=== PATIENT | female | born 1930 | race Caucasian/White ===

== ENCOUNTER 2016-07-08 19:32 | Emergency (ER) | payer MEDICARE, OTHER ==
--- NOTE | ~2016-07-08 | CT4 ---
[facility] A Service of [facility] & [facility] RADIOLOGY TEXT RESULTS PATIENT: JOSE ALVAREZ LOCATION: [facility] : 30 UNIT #: [id number] AGE: [address]: Ronnell Rubio MD SEX: F ORDER DR: [id number] [facility] [address] [place], [place] [address] [id number] E MR#: [id number] Acc #: [id number] NAME: JOSE ALVAREZ : 1930 SEX: F STUDY DATE/TIME: 07/08/2016 21:09 UNIT: [facility] ROOM: STUDY DESCRIPTION: CT Abd and Pelv Wo Cont Attending Physician: Ronnell Rubio M.D. Ordering Physician: Ronnell Rubio M.D. Primary Care Physician: Sixto Kwong M.D. MEDICAL IMAGING REPORT This report is preliminary unless electronic signature is present EXAM CT of the abdomen and pelvis, 07/08 HISTORY Abdominal pain with cramping and nausea since 10 a.m. this morning. History of CLL. TECHNIQUE Axial noncontrast images were obtained through the abdomen and pelvis. Multiplanar reformats were obtained. This CT exam was performed with one or more of the following radiation dose reduction techniques: automatic exposure control, adjustment of mA and/or kV according to patient size, and iterative reconstruction. COMPARISON 08/25/2013 FINDINGS ABDOMEN: There is a large hiatal hernia containing the gastric fundus. It is distended with food debris. The lung bases are clear. Gallbladder is relatively contracted. No renal or ureteral stones are seen. No hydronephrosis. There is a right renal cyst. Unenhanced solid organs are otherwise normal. There is atherosclerotic disease. The patient is status post partial colectomy. There is an ileocolic anastomosis in the left lower quadrant. Small bowel is mildly distended and free fluid throughout. No clear obstructing lesion is seen and there could be some component of obstruction at the ileocolic anastomosis. PELVIS: The bladder is normal. There are no lower ureteral stones. Uterus is surgically absent. There is atherosclerotic disease. 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 There are STS. 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 IMPRESSION 1. The patient is status post partial colectomy with a left lower quadrant ileocolic anastomosis. There are multiple free fluid distended small bowel loops throughout the abdomen and pelvis. While the exact point of obstruction is not clear, it may be at the level of the ileocolic anastomosis. 2. Large hiatal hernia containing the fundus of the stomach which is currently distended with food debris. 3. No renal or ureteral stones and no hydronephrosis. 4. Hysterectomy. Dictated by... Ronnell Ford Jr., M.D. THIS IS AN ELECTRONICALLY VERIFIED REPORT Ronnell Ford Jr., M.D. at 07/10/2016 7:36 AM BENNETT/taniya TD: 07/09/2016 07:56 JOB #: [id number] MEDICAL IMAGING REPORT Page 1 of 1 COPY
[~2016-07-08 19:32] MED LIST: ACETAMINOPHEN PR; ACETAMINOPHEN325 MG PO; AMAZING BUTT CREAM TOP; ANACIN; ANUSOL-HC SUPP25 M1 PR; ASPIRIN PO; ASPIRIN81 M1 PO; ASPIRIN81 M2 PO; ASPIRIN81 MG PO; BACTROBAN22 GM TP; BIOTIN; CARVEDILOL12.5 MG PO; CARVEDILOL3.125 MG PO; CORDARONE200 M1 PO; DIFLUCAN PO; DOCU SOFT100 M1 PO; HYDROCHLOROTH12.5 MG PO; KLOR-CON PO; LASIX20 MG PO; LEVAQUIN PO; LEVOTHROID88 MCG PO; LEVOTHYROXINE75 MCG PO; LEVOXYL88 MC1 PO; LISINOPRIL10 MG PO; LISINOPRIL5 MG PO; MIRALAX119 GM PO; MORGIDOX100 MG PO; NITROGLYCERIN0.4 MG SL; NITROGLYGERIN0.4 MG SL; NITROSTAT0.4 MG SL; OMEPRAZOLE20 M1 PO; OMEPRAZOLE20 M2 PO; PACERONE PO; PHENERGAN PR; PRILOSEC PO; PRILOSEC20 M1 PO; PRILOSEC20 MG PO; SIMVASTATIN40 MG PO; STOOL SOFTNER PO; SYNTHROID0.05 MG PO; SYNTHROID75 MCG PO; TOPROL XL 50 MG50 M1 PO; TOPROL XL 50 MG50 MG PO; TOPROL XL PO; TYLENOL PM EX-1 EAC2 PO; TYLENOL PM EX-S1 TA4 PO; XARELTO20 MG PO; ZEGERID40 MG/PKT PO; ZOFRAN ODT4 MG PO; [UNRECOGNIZED DRUG - OTHER]; [UNRECOGNIZED DRUG - OTHER] PO
[2016-07-08 20:14] LABS: URINE SOURCE CLEAN CATCH
[2016-07-08 20:19] LABS: BASOPHIL% 0.4 % (0-2.5); DIFF IND NO; EOSINOPHIL# 0.2 X10e3 (0-0.7); EOSINOPHIL% 1.5 % (0.0-7.0); HEMATOCRIT 40.3 % (35.0-45.0); LYMPHOCYTE# 1.9 X10e3 (1.0-3.5); LYMPHOCYTE% 18.3 % (17.0-45.0); MEAN CORPUSCULAR HEMOGLOBIN 30.4 PG (28-34); MEAN CORPUSCULAR HGB CONC 32.3 g/dL (30-36); MONOCYTE# 0.8 X10e3 (0-1.0); MONOCYTE% 8.2 % (3.0-12.0); NEUTROPHIL# 7.4 X10e3 (1.5-7.1); NEUTROPHIL% 71.6 % (40-75); PLATELET COUNT 172 X10e3 (140-420); RED BLOOD COUNT 4.29 X10e (3.90-5.30); RED CELL DISTRIBUTION WIDTH 14.6 % (11.0-15.5); WHITE BLOOD COUNT 10.3 X10e3 (4.0-10.5)
[2016-07-08 20:19] LABS: URINE APPEARANCE CLEAR; URINE BILIRUBIN NEG (NEG); URINE BLOOD NEG (NEG); URINE COLOR YELLOW; URINE GLUCOSE NEG (NEG); URINE KETONE TRACE (NEG); URINE LEUKOCYTE ESTERASE TRACE (NEG); URINE NITRATE NEG (NEG); URINE PROTEIN NEG (NEG); URINE SPECIFIC GRAVITY 1.019 (1.003-1.035); URINE UROBILINOGEN 0.2 MG/DL (NEG)
[2016-07-08 20:21] LABS: URBCS1 AUWI 0-2 /[HPF] (0-2); URINE BACTERIA AUWI NEG (NEGATIVE); URINE SQUAMOUS EPITHELIAL CELL OCC /[HPF]
[2016-07-08 20:23] LABS: CULTURE INDICATED? NO
[2016-07-08 20:32] LABS: INR 1.8; PROTHROMBIN TIME (PATIENT) 19.4 SECONDS (9.6-11.5)
[2016-07-08 20:39] LABS: ALBUMIN SERUM 4.5 g/dL (3.5-5.0); BILIRUBIN, DIRECT 0.1 mg/dL (0.0-0.2); BILIRUBIN,INDIRECT 0.7 mg/dL (0.0-0.9); BILIRUBIN,TOTAL 0.8 mg/dL (0.2-2.0); BUN/CREATININE RATIO 16.92; CALCIUM SERUM 9.8 mg/dL (8.4-10.2); CREATININE SERUM 1.3 mg/dL (0.6-1.4); GLOM FILT RATE Estimated 37.1 mL/min (>60); POTASSIUM 4.1 mmol/L (3.5-5.1); PROTEIN TOTAL SERUM 7.3 g/dL (6.0-8.3)
== END 2016-07-08 22:45 | disposition home or self-care (01) ==
LOC: CED 19:32
PROVIDERS: Emergency Medicine
DX: K56.60 Unspecified intestinal obstruction (principal); I48.91 Unspecified atrial fibrillation; I50.9 Heart failure, unspecified; N18.9 Chronic kidney disease, unspecified; Z86.2 Personal history of diseases of the blood and blood-forming organs and certain disorders involving the immune mechanism; Z87.440 Personal history of urinary (tract) infections; Z79.899 Other long term (current) drug therapy; Z79.82 Long term (current) use of aspirin; Z88.6 Allergy status to analgesic agent; Z88.0 Allergy status to penicillin; Z88.2 Allergy status to sulfonamides; Z88.1 Allergy status to other antibiotic agents; Z88.8 Allergy status to other drugs, medicaments and biological substances
CPT/HCPCS: 36415; 74176; 80048; 80076; 81003; 83690; 85025; 85610; 96360; 96361; 96374; 99284; J2405